=== PATIENT | female | born 1935 | race Caucasian/White ===

== ENCOUNTER 2023-01-05 10:34 | Emergency (ER) | payer MEDICARE, BC ==
[~2023-01-05] VITALS: Ht 152.4 cm; Wt 46.3 kg
[2023-01-05 10:57] VITALS: BP 133/75; TEMP 98; O2SAT 100
== END 2023-01-05 10:58 | disposition home or self-care (01) ==
LOC: ER 10:34
DX: R09.A2 Foreign body sensation, throat (principal); Z88.8 Allergy status to other drugs, medicaments and biological substances; Z91.013 Allergy to seafood